=== PATIENT | female | born 1985 | race Hispanic/Latino ===

== ENCOUNTER 2018-06-19 21:15 | Inpatient (IN) | payer SELFPAY ==
[~2018-06-19] VITALS: Ht 160 cm; Wt 56.7 kg
[2018-06-19] MEDS ORDERED: FAMOTIDINE/PF 20 MG/2 ML VIAL IV ONE (22:11)
[2018-06-19] MEDS ORDERED: ONDANSETRON HCL 4 MG/2 ML VIAL ONE (22:11)
[2018-06-19 22:27] LABS: APPEARANCE,URINE Clear (CLEAR); BILIRUBIN,URINE Negative (NEGATIVE); COLOR,URINE Yellow (YELLOW); GLUCOSE, URINE (UA) Negative (NEGATIVE); KETONES,URINE Negative (NEGATIVE); LEUKOCYTE ESTERASE ,URINE Negative (NEGATIVE); NITRATE,URINE Negative (NEGATIVE); OCCULT BLOOD,URINE Negative (NEGATIVE); PROTEIN,URINE Negative (NEGATIVE)
[2018-06-19 22:29] LABS: HCG,QUAL RESULT NEGATIVE (NEGATIVE)
[2018-06-19 22:29] LABS: BASOPHILS % (AUTO) 0.6 % (0.0-5.0); EOSINOPHILS % (AUTO) 2.4 % (0.0-8.0); LYMPHOCYTES % (AUTO) 41.7 % (21.0-51.0); MEAN CORPUSCULAR HEMOGLOBIN 31.6 pg (27.0-33.0); MEAN CORPUSCULAR HGB CONC 33.3 g/dL (32.0-36.0); MEAN CORPUSCULAR VOLUME 94.8 fL (79-99); MONOCYTES % (AUTO) 6.5 % (3.0-13.0); NEUTROPHILS % (AUTO) 48.8 % (40.0-77.0); PLATELET COUNT (AUTO) 171 K/uL (130-400); RED CELL DISTRIBUTION WIDTH 13.9 % (11.0-15.5); WHITE BLOOD COUNT (AUTO) 4.5 K/uL (4.8-10.8)
[2018-06-19 23:01] LABS: CREATININE 0.6 mg/dL (0.5-1.5); POTASSIUM 3.9 mmol/L (3.5-5.1)
[2018-06-19 23:07] LABS: ALBUMIN 4.4 g/dL (3.5-5.0); BILIRUBIN,DIRECT 0.1 mg/dL (0.0-0.3); BILIRUBIN,TOTAL 0.2 mg/dL (0.2-1.0); TOTAL PROTEIN, SERUM 7.5 g/dL (6.0-8.3)
[2018-06-19] MEDS ORDERED: SODIUM CHLORIDE 0.9% 1000ML 1,000 ML IV ONE (23:25)
[2018-06-19] MEDS ORDERED: MORPHINE SULFATE 2 MG/ML 1ML SYG ONE (23:44)
[2018-06-20] MEDS ORDERED: SODIUM CHLORIDE 0.9% 1000ML 1,000 ML IV ONE (00:31)
[2018-06-20] MEDS ORDERED: MORPHINE SULFATE 4 MG/1ML SYG ONE (00:31)
[2018-06-20 01:50] VITALS: BP 108/78
[2018-06-20] MEDS ORDERED: LACTATED RINGERS 1000ML 1,000 ML IV ONE (02:22)
[2018-06-20] MEDS: LACTATED RINGERS 1000ML 1,000 ML IV SCH ×2 (02:30→16:46)
[2018-06-20 04:12] VITALS: BP 100/54
[2018-06-20 04:28] LABS: BASOPHILS % (AUTO) 0.6 % (0.0-5.0); EOSINOPHILS % (AUTO) 2.8 % (0.0-8.0); HEMATOCRIT 31.4 % (36-48); LYMPHOCYTES % (AUTO) 46.8 % (21.0-51.0); MEAN CORPUSCULAR HGB CONC 33.8 g/dL (32.0-36.0); MEAN CORPUSCULAR VOLUME 94.6 fL (79-99); NEUTROPHILS % (AUTO) 42.8 % (40.0-77.0); NUCLEATED RED BLOOD CELLS 0.1 % (0.0-0.19); PLATELET COUNT (AUTO) 153 K/uL (130-400); RED BLOOD CELL COUNT(AUTO) 3.31 MIL/uL (4.00-5.50); RED CELL DISTRIBUTION WIDTH 13.8 % (11.0-15.5); WHITE BLOOD COUNT (AUTO) 4.2 K/uL (4.8-10.8)
[2018-06-20 04:41] LABS: ALBUMIN 3.1 g/dL (3.5-5.0); BILIRUBIN,TOTAL 0.2 mg/dL (0.2-1.0); CREATININE 0.5 mg/dL (0.5-1.5); POTASSIUM 3.5 mmol/L (3.5-5.1); TOTAL PROTEIN, SERUM 5.7 g/dL (6.0-8.3)
[2018-06-20 08:00] VITALS: BP 98/65
[2018-06-20] MEDS: MORPHINE SULFATE 4 MG/1ML SYG IVP PRN (08:27)
[2018-06-20] MEDS ORDERED: CEFTRIAXONE SODIUM 2 GM VIAL IVP SCH (11:30)
[2018-06-20] MEDS: PANTOPRAZOLE 40 MG/VIAL IVP SCH (11:32)
[2018-06-20] MEDS: ONDANSETRON HCL 4 MG/2 ML VIAL IVP PRN (11:32)
[2018-06-20 12:00] VITALS: BP 117/87
[2018-06-20] MEDS ORDERED: CEFTRIAXONE SODIUM 1 GM IVP SCH (13:17)
[2018-06-20] MEDS ORDERED: METOCLOPRAMIDE 10 MG/2 ML VIAL ONE (14:27)
[2018-06-20] MEDS ORDERED: ACETAMINOPHEN 325 MG TAB ONE (14:27)
[2018-06-20] MEDS: ACETAMINOPHEN 325 MG TAB PO PRN ×2 (14:41→21:34)
[2018-06-20] MEDS: METOCLOPRAMIDE 10 MG/2 ML VIAL IVP PRN ×2 (14:42→21:30)
[2018-06-20] MEDS ORDERED: PHARMACY COMMUNICATION MISC SCH (14:45)
[2018-06-20 16:00] VITALS: BP 104/67
[2018-06-20] MEDS: METRONIDAZOLE 250MG/50ML 50 ML IV SCH ×2 (16:46→21:34)
[2018-06-20 19:23] VITALS: BP 110/76
[2018-06-20] MEDS: DOXYCYCLINE 100MG+NS 250ML 250 ML IV SCH (23:23)
[2018-06-21] VITALS (7 sets, daily range): BP systolic 97–122; BP diastolic 58–83
[2018-06-21] MEDS: LACTATED RINGERS 1000ML 1,000 ML IV SCH ×2 (02:30→08:03)
[2018-06-21 04:02] LABS: BASOPHILS % (AUTO) 0.7 % (0.0-5.0); EOSINOPHILS % (AUTO) 2.5 % (0.0-8.0); HEMATOCRIT 33.6 % (36-48); LYMPHOCYTES % (AUTO) 29.3 % (21.0-51.0); MEAN CORPUSCULAR HEMOGLOBIN 31.8 pg (27.0-33.0); MEAN CORPUSCULAR HGB CONC 33.8 g/dL (32.0-36.0); MEAN CORPUSCULAR VOLUME 94.3 fL (79-99); MONOCYTES % (AUTO) 6.7 % (3.0-13.0); NEUTROPHILS % (AUTO) 60.8 % (40.0-77.0); NUCLEATED RED BLOOD CELLS 0.1 % (0.0-0.19); PLATELET COUNT (AUTO) 150 K/uL (130-400); RED BLOOD CELL COUNT(AUTO) 3.56 MIL/uL (4.00-5.50); RED CELL DISTRIBUTION WIDTH 13.5 % (11.0-15.5); WHITE BLOOD COUNT (AUTO) 4.3 K/uL (4.8-10.8)
[2018-06-21 04:17] LABS: CREATININE 0.5 mg/dL (0.5-1.5); POTASSIUM 3.4 mmol/L (3.5-5.1)
[2018-06-21] MEDS: METRONIDAZOLE 250MG/50ML 50 ML IV SCH ×2 (06:40→13:31)
[2018-06-21] MEDS: PANTOPRAZOLE 40 MG/VIAL IVP SCH (07:58)
[2018-06-21] MEDS: ONDANSETRON HCL 4 MG/2 ML VIAL IVP PRN (07:58)
[2018-06-21] MEDS: MORPHINE SULFATE 4 MG/1ML SYG IVP PRN ×2 (08:04→21:38)
[2018-06-21] MEDS: DOXYCYCLINE 100MG+NS 250ML 250 ML IV SCH ×2 (08:16→21:30)
[2018-06-21] MEDS ORDERED: PROMETHAZINE HCL 25 MG/ML 1ML AMPULE IM SCH (10:15)
[2018-06-21] MEDS ORDERED: PROMETHAZINE HCL 25 MG/ML 1ML AMPULE IM ONE (10:25)
[2018-06-21] MEDS ORDERED: CEFTRIAXONE SODIUM 1 GM IVP SCH (11:00)
[2018-06-21] MEDS ORDERED: COMPOUND IV MISC 1 EACH IVSOLN MISC PRN (11:15)
[2018-06-21] MEDS ORDERED: 1/2 NORMAL SALINE + 20 MEQ KCL 1,000 ML IV ONE (17:30)
[2018-06-21 20:15] LABS: AMPHET/METH SCREEN,URINE NEGATIVE (NEGATIVE); BARBITURATE SCREEN, URINE NEGATIVE (NEGATIVE); BENZODIAZEPINES SCREEN,URINE NEGATIVE (NEGATIVE); CANNABINOID SCREEN,URINE POSITIVE (NEGATIVE); COCAINE SCREEN,URINE NEGATIVE (NEGATIVE); OPIATE SCREEN,URINE NEGATIVE (NEGATIVE); PHENCYCLIDINE SCREEN,URINE NEGATIVE (NEGATIVE)
[2018-06-22] MEDS: METRONIDAZOLE 250MG/50ML 50 ML IV SCH ×3 (00:07→12:50)
[2018-06-22 03:05] VITALS: BP 114/70
[2018-06-22 04:41] LABS: BASOPHILS % (AUTO) 0.7 % (0.0-5.0); EOSINOPHILS % (AUTO) 3.2 % (0.0-8.0); HEMATOCRIT 31.7 % (36-48); LYMPHOCYTES % (AUTO) 49.3 % (21.0-51.0); MEAN CORPUSCULAR HEMOGLOBIN 32.4 pg (27.0-33.0); MEAN CORPUSCULAR HGB CONC 34.5 g/dL (32.0-36.0); MONOCYTES % (AUTO) 7.9 % (3.0-13.0); NEUTROPHILS % (AUTO) 38.9 % (40.0-77.0); NUCLEATED RED BLOOD CELLS 0.1 % (0.0-0.19); PLATELET COUNT (AUTO) 143 K/uL (130-400); RED BLOOD CELL COUNT(AUTO) 3.37 MIL/uL (4.00-5.50); RED CELL DISTRIBUTION WIDTH 13.6 % (11.0-15.5); WHITE BLOOD COUNT (AUTO) 3.6 K/uL (4.8-10.8)
[2018-06-22 04:52] LABS: CREATININE 0.6 mg/dL (0.5-1.5); POTASSIUM 3.5 mmol/L (3.5-5.1)
[2018-06-22 08:00] VITALS: BP 114/69
[2018-06-22] MEDS: DOXYCYCLINE 100MG+NS 250ML 250 ML IV SCH (08:45)
[2018-06-22] MEDS: PANTOPRAZOLE 40 MG/VIAL IVP SCH (08:45)
[2018-06-22] MEDS: MORPHINE SULFATE 4 MG/1ML SYG IVP PRN (08:46)
[2018-06-22 11:00] VITALS: BP 92/52
== END 2018-06-22 13:50 | disposition home or self-care (01) | DRG 440 ==
LOC: EDH 21:15 → EDHIP 21:16 → 4BH 06-20 01:28
PROVIDERS: ADMIT Hospitalist; ATTEND Hospitalist
DX: K85.90 Acute pancreatitis without necrosis or infection, unspecified (principal); B96.81 Helicobacter pylori [H. pylori] as the cause of diseases classified elsewhere; E87.6 Hypokalemia; F12.90 Cannabis use, unspecified, uncomplicated
CPT/HCPCS: 36415; 76705; 80048; 80053; 80076; 80305; 81003; 81025; 82150; 83690; 85025; 86677; C9113; J0696; J2270; J2405; J2550; J2765; J3480; J3490; J7030; J7120

== ENCOUNTER 2018-12-11 19:49 | Emergency (ER) | payer BC ==
[2018-12-11] MEDS ORDERED: ONDANSETRON ODT 4 MG TAB ONE (20:11)
[2018-12-11 20:13] LABS: APPEARANCE,URINE Clear (CLEAR); BILIRUBIN,URINE Negative (NEGATIVE); COLOR,URINE Yellow (YELLOW); GLUCOSE, URINE (UA) Negative (NEGATIVE); KETONES,URINE Negative (NEGATIVE); LEUKOCYTE ESTERASE ,URINE Negative (NEGATIVE); NITRATE,URINE Negative (NEGATIVE); OCCULT BLOOD,URINE Negative (NEGATIVE); PH,URINE 5.5 (5.0-8.0); PROTEIN,URINE Negative (NEGATIVE)
[2018-12-11 20:16] LABS: HCG,QUAL RESULT NEGATIVE (NEGATIVE)
[2018-12-11] MEDS ORDERED: ORPHENADRINE CITRATE 30 MG/ML ML ONE (20:22)
[2018-12-11] MEDS ORDERED: KETOROLAC TROMETHAMINE 60 MG/2 ML VIAL ONE (20:22)
== END 2018-12-11 21:21 | disposition home or self-care (01) ==
LOC: EDH 19:49
DX: S39.012A Strain of muscle, fascia and tendon of lower back, initial encounter (principal); Z98.890 Other specified postprocedural states; X58.XXXA Exposure to other specified factors, initial encounter; Y93.89 Activity, other specified; Y92.89 Other specified places as the place of occurrence of the external cause; Y99.8 Other external cause status
CPT/HCPCS: 81003; 81025; 96372 ×2; 99284; J1885; J2360

== ENCOUNTER 2022-04-03 08:19 | Emergency (ER) | payer BC, OTHER ==
[~2022-04-03] VITALS: Ht 157.5 cm; Wt 52.2 kg
[2022-04-03 08:21] VITALS: BP 119/53
[2022-04-03 08:43] LABS: APPEARANCE,URINE CLEAR (CLEAR); BILIRUBIN,URINE SMALL (NEGATIVE); COLOR,URINE YELLOW (YELLOW); GLUCOSE, URINE (UA) NEGATIVE (NEGATIVE); KETONES,URINE NEGATIVE (NEGATIVE); LEUKOCYTE ESTERASE ,URINE NEGATIVE (NEGATIVE); NITRATE,URINE NEGATIVE (NEGATIVE); OCCULT BLOOD,URINE NEGATIVE (NEGATIVE); PROTEIN,URINE TRACE mg/dL (NEGATIVE); UROBILINOGEN,URINE 0.2 mg/dL (0.2-1.0)
[2022-04-03 08:56] LABS: BASOPHILS % (AUTO) 0.7 % (0.0-5.0); EOSINOPHILS % (AUTO) 9.3 % (0.0-8.0); HEMATOCRIT 36.6 % (36-48); MEAN CORPUSCULAR HEMOGLOBIN 32.7 pg (27.0-33.0); MEAN CORPUSCULAR HGB CONC 34.7 g/dL (32.0-36.0); MEAN CORPUSCULAR VOLUME 94.3 fL (79-99); MONOCYTES % (AUTO) 6.3 % (3.0-13.0); NEUTROPHILS % (AUTO) 41.5 % (40.0-77.0); PLATELET COUNT (AUTO) 177 K/uL (130-400); RED BLOOD CELL COUNT(AUTO) 3.88 MIL/uL (4.00-5.50); WHITE BLOOD COUNT (AUTO) 4.3 K/uL (4.8-10.8)
[2022-04-03 08:57] LABS: BACTERIA,URINE Rare /HPF (None Seen); MUCUS,URINE Few LPF (None Seen); RBC,URINE 0-1 /HPF (0-1); SQUAMOUS EPITHELIAL CELL,UR Few /HPF (0-2); WBC,URINE 0-1 /HPF (0-1)
[2022-04-03 08:58] LABS: CREATININE 0.6 mg/dL (0.5-1.5); POTASSIUM 3.5 mmol/L (3.5-5.1)
[2022-04-03] MEDS ORDERED: LACTATED RINGERS 1000ML 1,000 ML IV ONE (09:00)
[2022-04-03] MEDS ORDERED: ONDANSETRON 4MG INJ IVP ONE (09:00)
[2022-04-03] MEDS ORDERED: KETOROLAC 15MG/ML VIAL (15MG/ML) IV ONE (09:00)
[2022-04-03 09:03] LABS: ALBUMIN 4.5 g/dL (3.5-5.0)
[2022-04-03] MEDS ORDERED: IOHEXOL 350 MG/ML 100ML INFUS..BTL IV ONE (10:33)
[2022-04-03] MEDS ORDERED: LOPE2CAP PO (12:04)
[2022-04-03] MEDS ORDERED: ESOM40CA PO (12:04)
[2022-04-03] MEDS ORDERED: CIPR-278 PO (12:04)
[2022-04-03] MEDS ORDERED: TRAM50TA4 PO (12:04)
== END 2022-04-03 12:31 | disposition home or self-care (01) ==
LOC: EDH 08:19
DX: K29.00 Acute gastritis without bleeding (principal); N83.202 Unspecified ovarian cyst, left side; Z79.1 Long term (current) use of non-steroidal anti-inflammatories (NSAID); Z90.710 Acquired absence of both cervix and uterus
CPT/HCPCS: 99285; 74177; 96374; 96361; 96375; 80053; 83690; 85025; 81001; 81025; 36415; J7120; J2405; J1885; Q9967

== ENCOUNTER 2022-12-12 04:23 | Emergency (ER) | payer OTHER ==
[~2022-12-12] VITALS: Ht 154.9 cm; Wt 30.4 kg
[~2022-12-12 04:23] MED LIST: CIPR-278 PO; ESOM40CA PO; LOPE2CAP PO; TRAM50TA4 PO
[2022-12-12 04:59] LABS: BASOPHILS % (AUTO) 0.4 % (0.0-5.0); EOSINOPHILS % (AUTO) 4.4 % (0.0-8.0); HEMATOCRIT 36.5 % (36-48); LYMPHOCYTES % (AUTO) 57.7 % (21.0-51.0); MEAN CORPUSCULAR HGB CONC 33.7 g/dL (32.0-36.0); MEAN CORPUSCULAR VOLUME 95.1 fL (79-99); MONOCYTES % (AUTO) 9.3 % (3.0-13.0); NEUTROPHILS % (AUTO) 28.2 % (40.0-77.0); PLATELET COUNT (AUTO) 155 K/uL (130-400); RED BLOOD CELL COUNT(AUTO) 3.84 MIL/uL (4.00-5.50); RED CELL DISTRIBUTION WIDTH 12.6 % (11.0-15.5); WHITE BLOOD COUNT (AUTO) 2.5 K/uL (4.8-10.8)
[2022-12-12 05:01] LABS: APPEARANCE,URINE CLEAR (CLEAR); BILIRUBIN,URINE NEGATIVE (NEGATIVE); COLOR,URINE LIGHT-YELLOW (YELLOW); GLUCOSE, URINE (UA) NEGATIVE (NEGATIVE); HCG,QUALITATIVE URINE NEGATIVE (NEGATIVE); KETONES,URINE NEGATIVE (NEGATIVE); LEUKOCYTE ESTERASE ,URINE NEGATIVE Leu/uL (NEGATIVE); NITRATE,URINE NEGATIVE (NEGATIVE); OCCULT BLOOD,URINE NEGATIVE (NEGATIVE); PROTEIN,URINE 10 mg/dL (NEGATIVE); UROBILINOGEN,URINE 0.2 mg/dL (0.2-1.0)
[2022-12-12 05:10] LABS: CREATININE 0.4 mg/dL (0.5-1.5); POTASSIUM 4.3 mmol/L (3.5-5.1)
[2022-12-12 05:15] LABS: TOTAL PROTEIN, SERUM 7.4 g/dL (6.0-8.3)
[2022-12-12 05:24] LABS: LYMPHOCYTES % (MANUAL) 72 % (22-44); MAN.DIFF COMMENT-IMPRESSION MANUAL DIFFERENTIAL; PLATELET MORPHOLOGY COMMENT ADEQUATE; SEGMENTED NEUTROPHILS % 28 % (40-70)
[2022-12-12] MEDS ORDERED: KETOROLAC 30MG VIAL (30MG/ML) IVP ONE (05:30)
[2022-12-12] MEDS ORDERED: IOHEXOL 350 MG/ML 100ML INFUS..BTL IV ONE (06:07)
[2022-12-12] MEDS ORDERED: SUCR1TAB28 PO (06:32)
[2022-12-12] MEDS ORDERED: OMEP40CA21 PO (06:32)
[2022-12-12 06:43] VITALS: BP 118/71
== END 2022-12-12 06:47 | disposition home or self-care (01) ==
LOC: EDH 04:23
DX: K27.9 Peptic ulcer, site unspecified, unspecified as acute or chronic, without hemorrhage or perforation (principal); F17.200 Nicotine dependence, unspecified, uncomplicated; F12.90 Cannabis use, unspecified, uncomplicated; Z79.899 Other long term (current) drug therapy
CPT/HCPCS: 99285; 74177; 96374; 80053; 83690; 85025; 81003; 81025; 36415; J1885; Q9967

== ENCOUNTER → 2023-01-18 | Outpatient (CLI) | payer BC ==
[~2023-01-18] MED LIST changes: +OMEP40CA21 PO; +SUCR1TAB28 PO
== END | disposition home or self-care (01) ==
LOC: RAH 11:02
PROVIDERS: ATTEND Internal Medicine Gastroenterology
DX: R10.13 Epigastric pain (principal); R68.81 Early satiety; R11.0 Nausea
CPT/HCPCS: 78264; A9541

== ENCOUNTER 2024-02-07 15:10 | Emergency (ER) | payer BC, OTHER ==
[~2024-02-07] VITALS: Ht 157.5 cm; Wt 54.4 kg
[2024-02-07] MEDS: 0.9%NACL 1000ML 1,000 ML IV ONE (15:20)
[2024-02-07] MEDS: ONDANSETRON 4MG INJ IVP ONE (15:20)
[2024-02-07] MEDS: KETOROLAC 30MG VIAL (30MG/ML) IVP ONE (15:20)
[2024-02-07 15:34] LABS: BASOPHILS # (AUTO) 0.04 K/uL (0.00-0.20); BASOPHILS % (AUTO) 0.5 % (0.0-5.0); EOSINOPHILS % (AUTO) 2.6 % (0.0-8.0); IMMATURE GRANULOCYTE ABSOLUTE 0.01 K/uL (0-1); LYMPHOCYTES # (AUTO) 2.3 K/uL (1.0-4.8); LYMPHOCYTES % (AUTO) 29.7 % (21.0-51.0); MEAN CORPUSCULAR HEMOGLOBIN 32.8 pg (27.0-33.0); MEAN CORPUSCULAR HGB CONC 34.9 g/dL (32.0-36.0); MONOCYTES # (AUTO) 0.6 K/uL (0.1-1.0); MONOCYTES % (AUTO) 7.1 % (3.0-13.0); NEUTROPHILS # (AUTO) 4.7 K/uL (1.8-7.7); PLATELET COUNT (AUTO) 231 K/uL (130-400); RED BLOOD CELL COUNT(AUTO) 4.36 MIL/uL (4.00-5.50); RED CELL DISTRIBUTION WIDTH 13.2 % (11.0-15.5); WHITE BLOOD COUNT (AUTO) 7.8 K/uL (4.8-10.8)
[2024-02-07 15:44] LABS: APPEARANCE,URINE CLEAR (CLEAR); BILIRUBIN,URINE NEGATIVE (NEGATIVE); COLOR,URINE LIGHT-YELLOW (YELLOW); GLUCOSE, URINE (UA) NEGATIVE (NEGATIVE); KETONES,URINE NEGATIVE (NEGATIVE); LEUKOCYTE ESTERASE ,URINE NEGATIVE Leu/uL (NEGATIVE); NITRATE,URINE NEGATIVE (NEGATIVE); OCCULT BLOOD,URINE NEGATIVE (NEGATIVE); PH,URINE 6.5 (5.0-8.0); PROTEIN,URINE NEGATIVE (NEGATIVE); UROBILINOGEN,URINE 0.2 mg/dL (0.2-1.0)
[2024-02-07 15:46] LABS: CREATININE 0.6 mg/dL (0.5-1.0); POTASSIUM 3.7 mmol/L (3.5-5.1)
[2024-02-07 15:49] VITALS: PULSE 69
[2024-02-07 15:53] LABS: ALBUMIN 4.7 g/dL (3.5-5.0); BILIRUBIN,TOTAL 0.4 mg/dL (0.2-1.0); TOTAL PROTEIN, SERUM 7.9 g/dL (6.0-8.3)
[2024-02-07 15:57] LABS: HCG,QUALITATIVE URINE NEGATIVE (NEGATIVE)
[2024-02-07 15:59] LABS: ADD UA MICROSCOPIC YES
[2024-02-07] MEDS ORDERED: DICY20TA2 PO (16:15)
[2024-02-07] MEDS ORDERED: ONDA-243 PO (16:15)
[2024-02-07 16:25] LABS: MUCUS,URINE RARE LPF (None Seen); SQUAMOUS EPITHELIAL CELL,UR FEW /HPF (0-2)
[2024-02-07 16:47] VITALS: BP 109/68; RESP 20; O2SAT 99
== END 2024-02-07 16:48 | disposition home or self-care (01) ==
LOC: EDH 15:10
DX: A08.4 Viral intestinal infection, unspecified (principal); R19.7 Diarrhea, unspecified; R10.9 Unspecified abdominal pain
CPT/HCPCS: 99284; 96374; 96361; 96375; 80053; 83690; 85025; 81001; 81025; 36415; J7030; J2405; J1885

== ENCOUNTER 2025-06-03 03:21 | Emergency (ER) | payer BC ==
[~2025-06-03] VITALS: Ht 157.5 cm; Wt 58.1 kg
[~2025-06-03 03:21] MED LIST changes: +DICY20TA2 PO; +ONDA-243 PO
--- NOTE | 2025-06-03 03:41 | ERN ---
ED Note History of Present Illness Stated Complaint: C/O BACK PAIN TO LEFT SIDE X2 WKS Chief Complaint: Back Pain-No Injury Time Seen by MD: 03:29 Dictation: This is a 39-year-old female who presented to the emergency room with complaints of left-sided lower back pain for 2 weeks. No fever chills or rigors. No dysuria hematuria. No history of any fall or injury to the back. No bladder or bowel incontinence. No gait disturbance. Temperature 96.8 pulse 68 respirations 20 blood pressure 107/70 with a pulse oximetry of 99% on room air Allergies: Coded Allergies: No Known Allergies (Unverified Allergy, Unknown, 06/20/18) Home Meds Active Scripts Diclofenac Sodium (Voltaren Arthritis Pain) 1 % Gel..gram., 20 GM TP BID for back pain, #1 TUBE Prov:QUIN PERRY DO 06/03/25 Orphenadrine Citrate (Orphenadrine Citrate) 100 Mg Tablet.er, 1 TAB PO [id number] PRN for pain for 10 Days, #20 TAB 0 Refills Prov:QIUN PERRY DO 06/03/25 Meloxicam (Meloxicam) 15 Mg Tablet, 15 MG PO DAILY PRN for PAIN for 10 Days, #10 TAB Prov:QUIN PERRY DO 06/03/25 Ondansetron (Ondansetron Odt) 4 Mg Tab.rapdis, 4 MG PO Q6HPRN PRN for nausea, #16 TAB 0 Refills Prov:SASHA SALTER SENIOR JAVA SOFTWARE ENGINEER 02/07/24 Dicyclomine HCl (Bentyl) 20 Mg Tab, 20 MG PO QID for ABD CRAMPS, #30 TAB Prov:SASHA SALTER SENIOR JAVA SOFTWARE ENGINEER 02/07/24 Omeprazole (Omeprazole) 40 Mg Capsule., 40 MG PO DAILY, #30 CAP Prov:JERMAINE FRANKLIN MD 12/12/22 Sucralfate (Carafate) 1 Gm Tablet, 1 GM PO QID, #100 TAB Prov:JERMAINE FRANKLIN MD 12/12/22 Tramadol Hcl (Tramadol HCl) 50 Mg Tablet, 50 MG PO QID for pain, #12 TAB 0 Refills Prov:LUIS DONALD MD 04/03/22 Esomeprazole Magnesium (Nexium) 40 Mg Capsule., 40 MG PO DAILY, #15 CAP 0 Refills Prov:LUIS DONALD MD 04/03/22 Loperamide HCl (Loperamide) 2 Mg Capsule, 2 MG PO 5XDAY for diarrhea, #10 CAP 0 Refills Take 2 tablets initially and then 1 tablet with every loose bowel movement. Prov:LUIS DONALD MD 04/03/22 Ciprofloxacin HCl (Cipro) 500 Mg Tablet, 1 TAB PO BID for 5 Days, #1 TAB 0 Refills Prov:LUIS DONALD MD 04/03/22 Past Medical History Past Medical History: No Pertinent History Surgical History: Hysterectomy, Family History: HTN Social History: Smokers, Drugs, ETOH, Lives with family History: Not Applicable RN Note Reviewed/Agreed w/PFSH: Yes Review of System Dictation Constitutional: Negative for fever,chills, and weight loss Eyes: Negative for injury, pain,redness, and discharge ENT: Negative for injury,pain or swelling Cardiovascular: Negative for chest pain, palpitations, and edema Respiratory: Negative for shortness of breath, cough, and wheezing, Abdomen/GI: Negative for abdominal pain, nausea, vomiting, diarrhea, and constipation Back: Negative for injury and positive for left-sided lower back pain : Negative for injury, bleeding and discharge MS/Extremity: Negative for injury and deformity Skin: Negative for rash, and discoloration Neuro: Negative for headache, weakness, numbness, tingling, and seizure Psych: Negative for suicide ideation, homicidal ideation, and hallucinations Initial Vital Sign VS Vital Signs Date Time Temp Pulse Resp B/P (MAP) Pulse Ox O2 Delivery O2 Flow Rate FiO2 06/03/25 03:22 96.8 68 20 107/70 99 Room Air 06/03/25 05:37 0 21 Physical Exam Dictation General: awake, alert, NAD Head/Face: Normocephalic, atraumatic Eyes: PERRL, EOMI, vision at baseline ENT: oral cavity clear, TMs clear, no signs of infection Neck: Trachea midline, supple, no nuchal rigidity Cardiovascular: RRR, normal S1/S2, No MRGs, no JVD Respiratory: CTAB, no respiratory distress, No rales or wheezes Abdomen: Soft, non-tender, non-distended, normal bowel sounds, no guarding or rebound. Skin: Warm, dry, normal turgor, no rash MS/Extremity: Pulses equal, no cyanosis, neurovascular intact, FROM Neuro: COAx4, GCS 15, strength 5/5, CN 2-12 intact, normal cerebellar exam, normal gait, Psych: Normal behavior, mood, and affect normal Extremities-trace edema without any palpable cords, Homans sign is negative Results (Laboratory/Radiology) Laboratory/Radiology Laboratory Tests Test 06/03/25 03:29 Urine Color LIGHT-YELLOW (YELLOW) Urine Appearance CLEAR (CLEAR) Urine pH 5.5 (5.0-8.0) Urine Specific [place] 1.024 (1.001-1.031) Urine Protein NEGATIVE mg/dL (NEGATIVE) Urine Glucose (UA) NEGATIVE mg/dL (NEGATIVE) Urine Ketones NEGATIVE mg/dL (NEGATIVE) Urine Occult Blood NEGATIVE (NEGATIVE) Urine Nitrate NEGATIVE (NEGATIVE) Urine Bilirubin NEGATIVE mg/dL (NEGATIVE) Urine Urobilinogen 0.2 mg/dL (0.2-1.0) Urine Leukocyte Esterase NEGATIVE [place]/uL Urine HCG, Qualitative NEGATIVE (NEGATIVE) Labs Reviewed?: Yes CT Scan Comment: REASON: Left flank pain ORDERING PHYSICIAN: TONY JUAREZ MD PROCEDURE: ABD PELVWO - CT ABD/PEL WO CON RENAL/APPY EXAM: CT Abdomen and Pelvis Without IV contrast CLINICAL HISTORY: Left flank pain TECHNIQUE: Axial computed tomography images of the abdomen and pelvis without intravenous contrast. CONTRAST: No IV contrast. COMPARISON: CT abdomen and pelvis dated 12/12/2022 and 04/03/2022. FINDINGS: LUNG BASES: The lung bases appear clear. No pleural effusions are seen. LIVER: Normal-sized liver with mild fatty infiltration of liver.A small 8 mm cyst in segment 8 of the liver. GALLBLADDER AND BILE DUCTS: The gallbladder appears within normal limits. No radioopaque gallstones are seen. No biliary ductal dilatation is evident. PANCREAS: Unremarkable. SPLEEN: Unremarkable. ADRENAL GLANDS: Unremarkable. KIDNEYS, URETERS, AND BLADDER: The kidneys appear within normal limits. There is no hydronephrosis or hydroureter. No urinary calculi are seen. STOMACH AND BOWEL: Unremarkable appearance of the stomach and bowel. No evidence of bowel obstruction. No evidence suggesting enteritis or colitis. Small fat-containing umbilical hernia. APPENDIX: No evidence of acute appendicitis on CT examination. PERITONEUM: No free fluid. No free air. LYMPH NODES: No lymphadenopathy is evident. REPRODUCTIVE: Stable left adnexal cystic lesion measuring 2.7 x 3.2 x 3.1 cm. No significant interval change since the prior CT scans dated 12/12/2022 and 04/03/2022. VASCULATURE: No evidence of abdominal aortic aneurysm. BONES: No aggressive appearing osseous lesion. No acute osseous pathology evident. IMPRESSION: No acute intra-abdominal or pelvic abnormality. Small, fat-containing umbilical hernia.Mild fatty infiltration of the liver with a small 8 mm cyst in segment 8 of the liver. Stable left adnexal cystic lesion measuring 2.7 x 3.2 x 3.1 cm. Recommended ultrasound pelvis correlation. /[place] DICTATED BY: DOMONIQUE FRANZ Jr., MD DATE: 06/03/25750 ELECTRONICALLY SIGNED BY: DOMONIQUE FRANZ Jr., MD DATE: 06/03/25750 ED Course ED Course Orders Procedure Category Date Status Time Urinalysis Profile LAB 06/03/25 Complete 03:29 ,Urine Test LAB 06/03/25 Complete 03:29 Ketorolac PHA 06/03/25 Complete Tromethamine 30mg/Ml 04:00 Methylprednisolone PHA 06/03/25 Complete Succ 40mg (Solu-Medro 04:00 Cyclobenzaprine Hcl PHA 06/03/25 Complete (Cyclobenzaprine Hcl 04:00 Water For PHA 06/03/25 Complete Injection,Sterile 03:53 Ct Abd/Pel Wo Con CT 06/03/25 Resulted Renal/Appy 05:46 Current Medications Medications (Trade) Dose Ordered Sig/Juan Ojsé Route PRN Reason Start Time Stop Time Status Last Admin Dose Admin Cyclobenzaprine HCl (Cyclobenzaprine HCl) 5 mg ONCE ONCE PO 06/03/25 04:00 06/03/25 04:01 DC 06/03/25 03:57 Ketorolac Tromethamine (toRADol) 30 mg ONCE ONCE IVP 06/03/25 04:00 06/03/25 04:01 DC 06/03/25 03:57 Methylprednisolone Sodium Succinate (Solu-medROL 40MG) 40 mg ONCE ONCE IVP 06/03/25 04:00 06/03/25 04:01 DC 06/03/25 03:56 Sterile Water (Sterile Water, Injection) 10 ml STK-MED ONCE .ROUTE 06/03/25 03:53 06/03/25 03:54 DC Vital Signs Date Time Temp Pulse Resp B/P (MAP) Pulse Ox O2 Delivery O2 Flow Rate FiO2 06/03/25 07:39 98.6 78 18 118/71 98 Room Air* 0 21 06/03/25 05:37 98.1 62 18 106/64 98 Room Air* 0 21 06/03/25 03:22 96.8 68 20 107/70 99 Room Air We will perform diagnostic labs, and administer medications according to the patient's complaint. Once the results are available, will review and personally interpreted the labs to rule out any acute life-threatening emergency the trach require immediate intervention and treatment. I will then re-evaluate the patient after treatment and diagnostic exams have return to determine whether the patient requires any further testing, can safely be discharged home or need further admission to hospital for additional treatment and evaluation. Medical Decision Making MDM Differential diagnosis: Rationale: Tests considered and ordered secondary to shared decision making include: Previous outside records reviewed: Old ER visits. Risk of complication and/or morbidity or mortality of patient management: None Medications-Per medication reconciliation Need for hospitalization: Patient does not meet criteria for hospitalization. Need for emergency major/minor surgery: No There are no social concerns with this patient. Prescription drug management Prescriptions will include symptomatic care Patient's prior external medical records from other ER visits were reviewed by me as indicated. Prior testing and results from previous visits were reviewed. Prior tests were taken into account with medical decision making and resource utilization, independent historian/historians were used to obtain complete medical history. I independently interpreted the test that were performed, results were reviewed by me and considered findings on radiology if ordered. Medical management and examination interpretation discussions were had by me with other qualified healthcare professionals as indicated for the patient's care. Dr. Perry: I took over care of the patient at 7:00 a.m.. I reviewed the labs. Urinalysis negative. CT scan of the abdomen and pelvis shows no acute abnormalities Re-evaluated the patient. She received pain control. She reports improvement of pain. He is ambulatory. P.o. tolerant. No midline tenderness. No n eurologic deficits. No incontinence. No red flags for pain. Likely musculoskeletal in nature. We will DC with supportive care and recommend PCP follow up. DX & DISP Disposition: Discharge Departure Impression: Primary Impression: Musculoskeletal back pain Condition: Stable Scripts Diclofenac Sodium (Voltaren Arthritis Pain) 1 % Gel..gram. 20 GM TP BID for back pain, #1 TUBE Prov: QUIN PERRY DO 06/03/25 Orphenadrine Citrate (Orphenadrine Citrate) 100 Mg Tablet.er 1 TAB PO [id number] PRN for pain for 10 Days, #20 TAB 0 Refills Prov: QUIN PERRY DO 06/03/25 Meloxicam (Meloxicam) 15 Mg Tablet 15 MG PO DAILY PRN for PAIN for 10 Days, #10 TAB Prov: QUIN PERRY DO 06/03/25 Additional Instructions: The CT scan of your abdomen and pelvis shows no acute abnormalities. Your symptoms are consistent with musculoskeletal back pain. Your urinalysis is unremarkable. I've prescribed meloxicam, which is a non-steroidal anti-inflammatory pain medication. Take once daily. I've prescribed orphenadrine, which is a muscle relaxer. Take twice per day for muscle spasm. I've prescribed lidocaine patches. Apply one to your back up to 3 times per day as needed. Apply Voltaern gel to your lower back twice per day. This is a topical pain medication. This medication is over the counter. Take tylenol (1000mg) 3-4 times per day as needed. This medication is over the counter. Please follow up with your primary doctor. You may needed physical therapy or further studies. Return to the emergency department as needed. Patient and the caregiver have been informed of all the diagnostic tests and the imaging conducted during the today's visit to the emergency room and has verbalized understanding of the results I have personally reviewed and interpreted all diagnostic exams performed here in the ER today as well as the vital signs documented by the nursing staff. The patient is now being discharged to home and should follow up with the primary care physician or the specialist as directed by the ER staff. Follow-up with primary care provider in 1 to 2 days. Take medications as directed here in the emergency room. Okay to continue home medications unless otherwise discussed during your visit in the emergency room today. Return to your nearest emergency room if symptoms worsen or if there is no improvement. Call 911 if you need immediate assistance. Take Tylenol or Motrin [id number] as needed and if no contraindications are present. Increase oral hydration. A wound culture or urine culture was ordered here in the emergency room department please follow-up with primary care provider and advise them to get repeat ports from our facility. If you had any Shabbir wrap/splints that were applied here, please do not remove them until you see your primary care or specialty. Referrals: NONE (PCP) TONY JUAREZ MD Jun 03, 2025 03:41 QUIN PERRY DO Jun 03, 2025 07:16
[2025-06-03 03:48] LABS: APPEARANCE,URINE CLEAR (CLEAR); GLUCOSE, URINE (UA) NEGATIVE (NEGATIVE); LEUKOCYTE ESTERASE ,URINE NEGATIVE Leu/uL (NEGATIVE); NITRATE,URINE NEGATIVE (NEGATIVE); OCCULT BLOOD,URINE NEGATIVE (NEGATIVE)
[2025-06-03] MEDS: Solu-medROL 40MG VIAL IVP ONE (03:56)
[2025-06-03] MEDS: CYCLOBENZAPRINE HCL 10 MG TABLET PO ONE (03:57)
[2025-06-03 03:58] LABS: ADD UA MICROSCOPIC NO
[2025-06-03 04:01] LABS: HCG,QUALITATIVE URINE NEGATIVE (NEGATIVE)
--- NOTE | 2025-06-03 06:52 | HMCIMG ---
EXAM: CT Abdomen and Pelvis Without IV contrast CLINICAL HISTORY: Left flank pain TECHNIQUE: Axial computed tomography images of the abdomen and pelvis without intravenous contrast. CONTRAST: No IV contrast. COMPARISON: CT abdomen and pelvis dated 12/12/2022 and 04/03/2022. FINDINGS: LUNG BASES: The lung bases appear clear. No pleural effusions are seen. LIVER: Normal-sized liver with mild fatty infiltration of liver.A small 8 mm cyst in segment 8 of the liver. GALLBLADDER AND BILE DUCTS: The gallbladder appears within normal limits. No radioopaque gallstones are seen. No biliary ductal dilatation is evident. PANCREAS: Unremarkable. SPLEEN: Unremarkable. ADRENAL GLANDS: Unremarkable. KIDNEYS, URETERS, AND BLADDER: The kidneys appear within normal limits. There is no hydronephrosis or hydroureter. No urinary calculi are seen. STOMACH AND BOWEL: Unremarkable appearance of the stomach and bowel. No evidence of bowel obstruction. No evidence suggesting enteritis or colitis. Small fat-containing umbilical hernia. APPENDIX: No evidence of acute appendicitis on CT examination. PERITONEUM: No free fluid. No free air. LYMPH NODES: No lymphadenopathy is evident. REPRODUCTIVE: Stable left adnexal cystic lesion measuring 2.7 x 3.2 x 3.1 cm. No significant interval change since the prior CT scans dated 12/12/2022 and 04/03/2022. VASCULATURE: No evidence of abdominal aortic aneurysm. BONES: No aggressive appearing osseous lesion. No acute osseous pathology evident. IMPRESSION: No acute intra-abdominal or pelvic abnormality. Small, fat-containing umbilical hernia.Mild fatty infiltration of the liver with a small 8 mm cyst in segment 8 of the liver. Stable left adnexal cystic lesion measuring 2.7 x 3.2 x 3.1 cm. Recommended ultrasound pelvis correlation. /[place]
[2025-06-03] MEDS ORDERED: ORPH100T4 PO (07:16)
[2025-06-03] MEDS ORDERED: DICL20GE TP (07:16)
[2025-06-03] MEDS ORDERED: MELO-108 PO (07:16)
[2025-06-03 07:39] VITALS: BP 118/71; PULSE 78; RESP 18; TEMP 98.6; O2SAT 98
== END 2025-06-03 07:42 | disposition home or self-care (01) ==
LOC: EDH 03:21
DX: M54.50 Low back pain, unspecified (principal); F17.200 Nicotine dependence, unspecified, uncomplicated; Z79.899 Other long term (current) drug therapy; Z79.1 Long term (current) use of non-steroidal anti-inflammatories (NSAID); Z90.710 Acquired absence of both cervix and uterus; Z90.49 Acquired absence of other specified parts of digestive tract
CPT/HCPCS: 99284; 74176; 96374; 96375; 81003; 81025; J1885; J2919